=== PATIENT | male | born 1995 | race Caucasian/White ===

== ENCOUNTER 2021-04-25 01:36 | Emergency (ER) | payer BC ==
[~2021-04-25] VITALS: Ht 177.8 cm; Wt 79.5 kg
[2021-04-25 01:52] VITALS: TEMP 98
[2021-04-25 02:25] VITALS: BP 114/80; PULSE 88
== END 2021-04-25 02:25 | disposition home or self-care (01) ==
LOC: COL.ER 01:36
DX: S01.111A Laceration without foreign body of right eyelid and periocular area, initial encounter (principal); W01.198A Fall on same level from slipping, tripping and stumbling with subsequent striking against other object, initial encounter